=== PATIENT | male | born 1985 | race Caucasian/White ===

== ENCOUNTER → 2023-09-23 01:37 | Outpatient (CLI) | payer OTHER, SELFPAY ==
--- NOTE | 2023-09-23 | ETT_ITS ---
APPROVED REPORT Exam: Exercise Treadmill Patient Location: Out-Patient Room/Bed: Stress Nurse: Mandie Carlson RN Ordering Provider:MICHELL SCHROEDER, Contact Number: [phone] BMI: 42.47 Baseline Rhythm: Sinus Rhythm Indications: Dyspnea, Medical History Medical History: Chest pain, BOWSER, morbid obesity, smoker Cardiac Medications: None Allergies: Penicillins Cardiac Risk Factors: Family hx, asthma, smoker, obesity Previous Cardiac Procedures: None Pretest Chest Pain Characteristics: None Exercise History: Indeterminate Physical Disabilities: None Lung Sounds: Clear to auscultation Heart Sounds: Regular Stress Test Details Test: Exercise stress testing was performed using a Jeff protocol. Rest Stress HR Resting HR Supine: 74 bpm Max Heart Rate (APMHR): 183 bpm Resting HR Standin bpm Target HR (85% APMHR): 156 bpm Max HR Achieved: 174 bpm % of APMHR: 95 Recovery HR: 93 bpm HR response to stress: Normal HR response to stress BP Resting BP Supine: 110/76 mmHg Resting BP Standin/80 mmHg Max BP: 152/70 mmHg Recovery BP: 116/70 mmHg BP response to stress: Normal blood pressure response to stress. ECG Resting ECG: Sinus Rhythm Ectopy: None Stress ECG: Sinus Tachycardia ST Change: No significant ST segment changes noted Arrhythmia: Occasional PVC's Recovery ECG: Sinus Rhythm Recovery ST Change: No significant ST segment changes noted Recovery Arrhythmia: Occasional PAC's Clinical Reason for Termination: Target HR Achieved, Fatigue, Mod SOB Stress Symptoms: Mod SOB Exercise duration: 07 min29 sec Highest Stage Reached: Stage 3: 3.4 mph at 14% grade. Exercise capacity: 9.34 METs Angina Score: None Rothman Treadmill Score: 6.2 Rate Pressure Product: [id number] Stress ECG Conclusion 1. Resting electrocardiogram showed vertical axis, poor R wave progression 2. Patient exercised on the Jeff protocol and completed a workload of 9.34 METS 3. Normal heart rate and blood pressure response to exercise. The patient achieved 95% of predicted heart rate for age 4. There was no electrocardiographic evidence of myocardial ischemia 5. There were rare PVCs Rothman Treadmill Score is 6.2 which is Low risk. Stress Test Summary STAGE Time (mins) Speed (mph) Grade (%) HR BP SpO2 SYMPTOMS METS Supine 74 110/76 94 Standing 81 112/80 1 3 1.7 10 120 130/80 95 4.5 2 6 2.5 12 136 140/78 95 Mod SOB 7 3 9 3.4 14 171 10 1 min recovery 152 152/70 95 3 min recovery 112 138/68 95 6 min recovery 93 116/70 SOB resolved
== END ==
PROVIDERS: PCP Physician Assistant; Visit Provider Physician Assistant
DX: R06.00 Dyspnea, unspecified (principal)
CPT/HCPCS: 93017